=== PATIENT | female | born 1945 | race Caucasian/White ===

== ENCOUNTER 2018-12-10 11:56 | Day surgery (SDC) | payer OTHER ==
[2018-12-10] MEDS ORDERED: PROPOFOL 40 ML (13:02)
== END 2018-12-10 16:21 | disposition home or self-care (01) ==
LOC: GIL 11:56
DX: K92.1 Melena (principal); K64.8 Other hemorrhoids; D12.3 Benign neoplasm of transverse colon; D12.8 Benign neoplasm of rectum; I10 Essential (primary) hypertension; E03.9 Hypothyroidism, unspecified
CPT/HCPCS: 45380; 88305